=== PATIENT | female | born 1985 | race Caucasian/White ===

== ENCOUNTER → 2020-06-02 14:26 | Outpatient (CLI) | payer OTHER, SELFPAY ==
[2020-06-03 20:33] LABS: HCG Quantitative /Beta subunit 4027.7 mIU/mL
== END ==
PROVIDERS: PCP Family Medicine; Referring Provider Family Medicine; Visit Provider Family Medicine
DX: Z34.90 Encounter for supervision of normal pregnancy, unspecified, unspecified trimester (principal)
CPT/HCPCS: 84702

== ENCOUNTER → 2020-06-04 08:26 | Outpatient (CLI) | payer OTHER, SELFPAY ==
[2020-06-04 20:37] LABS: HCG Quantitative /Beta subunit 10888 mIU/mL
== END ==
PROVIDERS: PCP Family Medicine; Visit Provider Family Medicine
DX: Z34.90 Encounter for supervision of normal pregnancy, unspecified, unspecified trimester (principal)
CPT/HCPCS: 84702